=== PATIENT | male | born 1970 | race Two or more races ===

== ENCOUNTER → 2018-05-28 | Outpatient (CLI) | payer OTHER | END | disposition home or self-care (01) | LOC: CFH 15:16 | DX: M54.6 Pain in thoracic spine (principal) | CPT/HCPCS: 76770 ==

== ENCOUNTER → 2020-01-20 | Outpatient (CLI) | payer OTHER | END | disposition home or self-care (01) | LOC: RAD 14:31 | PROVIDERS: ATTEND Family Medicine | DX: K80.20 Calculus of gallbladder without cholecystitis without obstruction (principal); R06.2 Wheezing | CPT/HCPCS: 76705 ==